=== PATIENT | male | born 1995 | race Caucasian/White ===

== ENCOUNTER 2017-05-20 15:45 | Emergency (ER) | payer OTHER ==
[~2017-05-20] VITALS: Ht 157.5 cm; Wt 58.0 kg
[~2017-05-20 15:45] MED LIST: D3 PO; OMEP40CA6 PO; ZANTAC PO
[2017-05-20 15:53] VITALS: Ht 157.5 cm; Wt 58.0 kg
--- NOTE | 2017-05-20 17:26 | ERD ---
ER Documentation Chief Complaint Date/Time DATE: 05/20/17 TIME: 17:23 Chief Complaint WEAK,DIZZY,NOT EATING, PALPITATIONS HPI This is a 22-year-old male with a past medical history of GERD and ulcers that presents to the ER complaining of multiple complaints. Patient states that since Thursday he is felt weak and dizzy. He describes dizziness as a falling sensation and states he feels like he is going to pass out. Patient also complaining of palpitations, chest pain or shortness of breath. Patient states that he went to the ER at [facility] on Thursday for EKG blood work and urine tests were done and he was sent home without any medications. Patient states that his symptoms continue and have worsened. He is also complaining of decreased appetite. He denies any fevers or chills. He denies any cough or cold symptoms. He denies any nausea vomiting or diarrhea. Patient's also complaining of a syncope episode which happened 3 weeks ago. Patient states that he was passed out for 1 second. Patient states that he has not fallen or had any head trauma. ROS 12 point review of systems was done, all negative except per HPI. Medications Home Meds Active Scripts Sucralfate* (Carafate*) 1 Gm Tab, 1 GM PO QID for 7 Days, TAB Prov:TATE RUSSELL 05/20/17 Famotidine* (Pepcid*) 20 Mg Tablet, 20 MG PO BID for 4 Days, TAB Prov:TATE RUSSELL 05/20/17 Reported Medications [D3] No Conflict Check, PO DAILY 06/29/15 [Zantac] No Conflict Check, PO DAILY 06/29/15 Omeprazole* (Omeprazole*) 40 Mg Capsule.dr, 40 MG PO BEFORE BREAKFAST 01/16/14 Allergies Allergies: Coded Allergies: No Known Drug Allergy (Verified Allergy, Unknown, 06/29/15) PMhx/Soc History of Surgery: Yes (TONSILLECTOMY, EGD, NASAL) Anesthesia Reaction: No Hx Neurological Disorder: No Hx Respiratory Disorders: Yes (ASTHMA, LAST USE INHALER 4 MOS AGO) Hx Cardiac Disorders: No Hx Psychiatric Problems: Yes (ANXIETY, DEPRESSION. FAM SUPPORT) Hx Miscellaneous Medical Probl: No Hx Alcohol Use: Yes Hx Substance Use: Yes (LAST USE 06/29/15 MARIJUANA) Hx Tobacco Use: Yes Smoking Status: Former smoker Physical Exam Vitals Vital Signs Date Time Temp Pulse Resp B/P Pulse Ox O2 Delivery O2 Flow Rate FiO2 05/20/17 17:54 60 108/58 61 111/66 60 112/66 05/20/17 15:53 98.1 86 18 126/86 99 Physical Exam GENERAL: The patient is well developed and appropriate for usual state of health , in no apparent distress. HEENT: Atraumatic. Conjunctivae are pink. Pupils equal, round, and reactive to light. Extraocular muscles are grossly intact. No nystagmus. Bilateral tympanic membranes are clear with no evidence of erythema, bulging or perforation. NECK: C-spine is soft and supple. There is no cervical lymphadenopathy. CHEST: Clear to auscultation bilaterally. There are no rales, wheezes or rhonchi. HEART: Regular rate and rhythm. No murmurs, clicks, rubs or gallops. EXTREMITIES: Equal pulses bilaterally. There is no peripheral clubbing, cyanosis or edema. No focal swelling or erythema. Full range of motion. Grossly neurovascularly intact. NEURO: Alert and oriented. Cranial nerves II through XII are intact. Motor strength in all 4 extremities with 5/5 strength. Sensation grossly intact. Normal speech and gait. Negative Rhomberg. +2 DTRs. SKIN: There is no apparent rash or petechia. The skin is warm and dry. Result Diagram: 05/20/175 05/20/175 Results 24 hrs Laboratory Tests Test 05/20/17 17:45 White Blood Count 7.610^3/ul Red Blood Count 5.7410^6/ul Hemoglobin 15.4g/dl Hematocrit 47.0% Mean Corpuscular Volume 81.9fl Mean Corpuscular Hemoglobin 26.8pg Mean Corpuscular Hemoglobin Concent 32.8g/dl Red Cell Distribution Width 12.3% Platelet Count 39522^3/UL Mean Platelet Volume 9.5fl Neutrophils % 60.7% Lymphocytes % 30.6% Monocytes % 8.0% Eosinophils % 0.5% Basophils % 0.1% Nucleated Red Blood Cells % 0.0/100WBC Neutrophils # 4.610^3/ul Lymphocytes # 2.310^3/ul Monocytes # 0.610^3/ul Eosinophils # 0.010^3/ul Basophils # 0.010^3/ul Nucleated Red Blood Cells # 0.010^3/ul Urine Color YELLOW Urine Clarity CLEAR Urine pH 7.0 Urine Specific [place] 1.014 Urine Ketones NEGATIVEmg/dL Urine Nitrite NEGATIVEmg/dL Urine Bilirubin NEGATIVEmg/dL Urine Urobilinogen NEGATIVEmg/dL Urine Leukocyte Esterase NEGATIVELeu/ul Urine Microscopic RBC 0/HPF Urine Microscopic WBC 2/HPF Urine Bacteria FEW/HPF Urine Hemoglobin 1+mg/dL Urine Glucose NEGATIVEmg/dL Urine Total Protein NEGATIVEmg/dl Sodium Level 136mmol/L Potassium Level 3.8mmol/L Chloride Level 100mmol/L Carbon Dioxide Level 29mmol/L Anion Gap 11 Blood Urea Nitrogen 8mg/dl Creatinine 0.76mg/dl Glucose Level 92mg/dl Calcium Level 9.8mg/dl Total Bilirubin 2.3mg/dl Direct Bilirubin 0.00mg/dl Indirect Bilirubin 2.3mg/dl Aspartate Amino Transf (AST/SGOT) 22IU/L Alanine Aminotransferase (ALT/SGPT) 35IU/L Alkaline Phosphatase 58IU/L Total Protein 8.6g/dl Albumin 5.4g/dl Globulin 3.20g/dl Albumin/Globulin Ratio 1.68 Procedures/MDM EKG read by my supervising physician Dr. Dickerson 70bpm no ST elevation or t wave inversion. Differential Diagnosis includes but is not limited to; Benign positional vertigo , labyrinthitis, vertigo, MS, acoustic neuroma, arrhythmia, anemia, hypoglycemia , infection, dehydration. Patient presents with multiple complaints mostly involving dizziness. At this time patient's neurological examination is completely benign with no focal neurological deficits I doubt intracranial pathology. Patient does not have any arrhythmia, infection, electrolyte abnormality or evidence of dehydration or hypoglycemia. Patient also complains of chest pain shortness of breath I however doubt acute cardiac etiology in regards to his chest pain, Differential diagnosis includes but is not limited to ; STEMI, dissection, pneumothorax, PE, esophageal rupture, tamponade, pneumonia , pericarditis, GERD, musculoskeletal, endocarditis, anxiety. Patient's EKG is normal and he does not have any PERC criteria. Patient will be sent home with famotidine and with Carafate as he does have a history of GERD and ulcers. Patient's appetite has been decreased which may be related to his chronic condition, which is why these medications were prescribed to try to alleviate this. Patient needs to follow-up with his primary care doctor within 1-2 days return to ER sooner if symptoms worsen. My medical decision making shared with the patient and his mother they both understand and agree with plan. Departure Diagnosis: Primary Impression: Multiple complaints Condition: Stable TATE RUSSELL May 20, 2017 17:26
[2017-05-20 17:53] LABS: ADD SCAN DIFF NO
[2017-05-20 17:59] LABS: BASOPHILS % 0.1 % (0.0-2.0); EOSINOPHILS % 0.5 % (0.0-7.0); HEMOGLOBIN 15.4 g/dl (14.0-18.0); LYMPHOCYTES # 2.3 10^3/ul (0.8-2.9); LYMPHOCYTES % 30.6 % (15.0-51.0); MEAN CORPUSCULAR HEMOGLOBIN 26.8 pg (29.0-33.0); MEAN CORPUSCULAR HGB CONC 32.8 g/dl (32.0-37.0); MEAN CORPUSCULAR VOLUME 81.9 fl (82.0-101.0); MEAN PLATELET VOLUME 9.5 fl (7.4-10.4); MONOCYTE # 0.6 10^3/ul (0.3-0.9); NEUTROPHIL # 4.6 10^3/ul (1.6-7.5); NEUTROPHILS % 60.7 % (39.0-77.0); PLATELET COUNT 245 10^3/UL (140-415); RED BLOOD COUNT 5.74 10^6/ul (4.70-6.10); RED CELL DISTRIBUTION WIDTH 12.3 % (11.5-14.5); WHITE BLOOD COUNT 7.6 10^3/ul (4.8-10.8)
[2017-05-20 18:03] LABS: ADD UMIC YES; UR ASCORBIC ACID NEGATIVE (NEGATIVE); UR BACTERIA FEW /HPF (NONE SEEN); UR BILIRUBIN (Dip) NEGATIVE (NEGATIVE); UR BLOOD (Dip) 1+ mg/dL (NEGATIVE); UR CLARITY CLEAR (CLEAR); UR COLOR YELLOW (YELLOW); UR GLUCOSE (Dip) NEGATIVE (NEGATIVE); UR KETONES (Dip) NEGATIVE (NEGATIVE); UR LEUKOCYTE ESTERASE (Dip) NEGATIVE Leu/ul (NEGATIVE); UR NITRITE (Dip) NEGATIVE (NEGATIVE); UR RBC 0 /HPF (0-5); UR SPECIFIC GRAVITY (Dip) 1.014 (1.003-1.030); UR TOTAL PROTEIN (Dip) NEGATIVE (NEGATIVE); UR UROBILINOGEN (Dip) NEGATIVE (NEGATIVE)
--- NOTE | 2017-05-20 18:06 | RADRPT ---
PROCEDURE: CT Brain without contrast. CLINICAL INDICATION: Loss of consciousness TECHNIQUE: A CT of the brain was performed on a [employer] 64-slice CT scanner utilizing axial imaging from the skull base through the vertex without IV contrast. Multiplanar reformatted images were made. Images were reviewed on a PACS workstation. The CTDIvol is 39 mGy and the DLP is 623 mG ycm. COMPARISON: None FINDINGS: There is no intracranial hemorrhage, mass effect, or midline shift. No extra-axial fluid collection is seen. The ventricles and sulci are normal in size and configuration. The density of the brain is normal, and the turner white matter differentiation appears well-preserved. The visualized paranasal sinuses and osseous structures are grossly unremarkable. IMPRESSION: 1. No evidence of acute intracranial pathology. 2. The brain is normal in appearance. Physician Yung Date Time Electronically viewed and signed by Physician Yung on 05/20/2017 18:06 ML/
[2017-05-20 18:18] LABS: ALBUMIN 5.4 g/dl (3.3-4.9); ALBUMIN/GLOBULIN RATIO 1.68; BILIRUBIN,INDIRECT 2.3 mg/dl (0-1.1); BILIRUBIN,TOTAL 2.3 mg/dl (0.2-1.3); CALCIUM 9.8 mg/dl (8.4-10.2); CREATININE 0.76 mg/dl (0.61-1.24); POTASSIUM 3.8 mmol/L (3.5-5.1); TOTAL PROTEIN 8.6 g/dl (6.1-8.1)
--- NOTE | 2017-05-20 18:23 | RADRPT ---
PROCEDURE: Chest x-ray CLINICAL INDICATION: Palpitations TECHNIQUE: Chest single view COMPARISON: None FINDINGS: The heart is normal in size. The pulmonary vessels are normal in caliber. The lungs are clear. Th e costophrenic angles are sharp. The visualized bony thorax is unremarkable. IMPRESSION: No acute cardiopulmonary disease. RPTAT: HH .Joon Llanes MD, Date Time Electronically viewed and signed by .Joon Llanes MD, MD on 05/20/2017 18:23 .W/
[2017-05-20] MEDS ORDERED: FAMO-18 PO (18:42)
[2017-05-20] MEDS ORDERED: SUCR1TAB56 PO (18:43)
[2017-05-20 18:57] VITALS: BP 131/69; PULSE 62; RESP 16; TEMP 98.1
== END 2017-05-20 18:59 | disposition home or self-care (01) ==
LOC: FTE 15:45
DX: R53.1 Weakness (principal); R42 Dizziness and giddiness; R00.2 Palpitations; R07.9 Chest pain, unspecified; R06.02 Shortness of breath; R63.0 Anorexia; R55 Syncope and collapse; J45.909 Unspecified asthma, uncomplicated; Z87.891 Personal history of nicotine dependence
CPT/HCPCS: 70450; 71010; 80053; 81001; 85025; 93005